=== PATIENT | male | born 1975 | race Caucasian/White ===

== ENCOUNTER → 2017-02-05 | Outpatient (CLI) | payer BC ==
[~2017-02-05] MED LIST: CARI350T14 PO; FENT1PAT15 TP; FEXO1TAB31 PO; HYDR-2766 PO; IOHEXOL 180 MG/ML 10 ML VIAL. ONE; MONT10TA9 PO; MULT1CAP15 PO; NABU500T PO; methylPREDNISolone ACETATE 40 MG/ML VIAL. ONE; methylPREDNISolone ACETATE 80 MG/ML VIAL. ONE
== END | disposition home or self-care (01) ==
LOC: PNCL 07:26
PROVIDERS: ATTEND Anesthesiology
DX: M51.36 Other intervertebral disc degeneration, lumbar region (principal)
CPT/HCPCS: 62323; J1030; J1040

== ENCOUNTER → 2017-02-09 | Outpatient (CLI) | payer BC ==
[~2017-02-09] MED LIST changes: +BUPIVACAINE MPF 0.25% 10 ML VIAL. ONE; -IOHEXOL 180 MG/ML 10 ML VIAL. ONE; -methylPREDNISolone ACETATE 80 MG/ML VIAL. ONE
== END | disposition home or self-care (01) ==
LOC: PNCL 07:18
PROVIDERS: ATTEND Anesthesiology
DX: M77.9 Enthesopathy, unspecified (principal)
CPT/HCPCS: 20600; J1030; J3490

== ENCOUNTER → 2017-02-23 | Outpatient (CLI) | payer BC ==
[~2017-02-23] MED LIST changes: -BUPIVACAINE MPF 0.25% 10 ML VIAL. ONE; +IOHEXOL 180 MG/ML 10 ML VIAL. ONE; +methylPREDNISolone ACETATE 80 MG/ML VIAL. ONE
== END | disposition home or self-care (01) ==
LOC: PNCL 14:05
PROVIDERS: ATTEND Anesthesiology
DX: M51.16 Intervertebral disc disorders with radiculopathy, lumbar region (principal); M96.1 Postlaminectomy syndrome, not elsewhere classified
CPT/HCPCS: 62323; J1030; J1040

== ENCOUNTER 2017-04-16 12:15 | Emergency (ER) | payer BC ==
[~2017-04-16] VITALS: Ht 188 cm; Wt 103.0 kg
[~2017-04-16 12:15] MED LIST changes: -IOHEXOL 180 MG/ML 10 ML VIAL. ONE; -methylPREDNISolone ACETATE 40 MG/ML VIAL. ONE; -methylPREDNISolone ACETATE 80 MG/ML VIAL. ONE
[2017-04-16 12:44] VITALS: BP 124/75
--- NOTE | 2017-04-16 14:26 | RAD ---
Right forearm, 2 views, 04/16/2017: History: Pain No fracture or bony abnormality is detected. IMPRESSION: No significant abnormality is identified. Right elbow, 3 views, 04/16/2017: No fracture or dislocation is identified. No significant arthritic changes are seen. There is no evidence of a significant joint effusion. IMPRESSION: No right elbow abnormality is detected.
--- NOTE | 2017-04-16 14:32 | PHYS DOC ---
Past Medical History Past Medical History: Other Additional Past Medical Histor: chronic back pain Past Surgical History: Other Additional Past Surgical Histo: back Alcohol Use: Occasionally Drug Use: None Adult General Chief Complaint Chief Complaint: [facility] EXT[facility] HPI Patient is a 41 year old male presents to the emergency room stating he's been having right elbow, right forearm pain and discomfort since December. He states that he's been getting injections at Dr. Jo office. Patient states that he went fishing over the weekend he has had increased pain and discomfort in the area. He denies any numbness or tingling into the hands. He denies using any type medications to help with pain and discomfort. He denies any injury or any trauma. Review of Systems Review of Systems Constitutional: Denies fever or chills [] Eyes: Denies change in visual acuity, redness, or eye pain [] HENT: Denies nasal congestion or sore throat [] Respiratory: Denies cough or shortness of breath [] Cardiovascular: No additional information not addressed in HPI [] GI: Denies abdominal pain, nausea, vomiting, bloody stools or diarrhea [] : Denies dysuria or hematuria [] Musculoskeletal: Denies back pain. Complaint of right elbow right forearm pain Integument: Denies rash or skin lesions [] Neurologic: Denies headache, focal weakness or sensory changes [] Endocrine: Denies polyuria or polydipsia [] Allergies Allergies Allergies Coded Allergies Type Severity Reaction Last Updated Verified No Known Drug Allergies 03/11/16 No Physical Exam Physical Exam Constitutional: Well developed, well nourished, no acute distress, non-toxic appearance. [] HENT: Normocephalic, atraumatic, bilateral external ears normal, oropharynx moist, no oral exudates, nose normal. [] Eyes: PERRLA, EOMI, conjunctiva normal, no discharge. [] Neck: Normal range of motion, no tenderness, supple, no stridor. [] Cardiovascular:Heart rate regular rhythm Lungs & Thorax: No respiratory distress noted Skin: Warm, dry, no erythema, no rash. [] Back: No tenderness Extremities: Right elbow, right forearm tenderness, no cyanosis, no clubbing, ROM intact, no edema. Peripheral pulses 2+ cap refill brisk less than 2 seconds. Equal jewelry racker noted bilaterally. Neurologic: Alert and oriented X 3, normal motor function, normal sensory function, no focal deficits noted. [] Psychologic: Affect normal, judgement normal, mood normal. [] Current Patient Data Vital Signs Vital Signs Date Time Temp Pulse Resp B/P (MAP) Pulse Ox O2 Delivery O2 Flow Rate FiO2 04/16/17 12:44 98.9 78 18 124/75 (91) 99 Room Air 98.9 EKG EKG [] Radiology/Procedures Radiology/Procedures [][facility] [address] [place] [address] IMAGING REPORT Signed PATIENT: SARKIS ZARCO ACCOUNT: [id number] : 1975 LOCATION: ER AGE: 41 SEX: M EXAM [id number] STATUS: REG ER ORD. PHYSICIAN: MICHAEL POWELL APRN REASON: pain and discomfot since december PROCEDURE: ELBOW RIGHT 3V; FOREARM RIGHT Right forearm, 2 views, 04/16/2017: History: Pain No fracture or bony abnormality is detected. IMPRESSION: No significant abnormality is identified. Right elbow, 3 views, 04/16/2017: No fracture or dislocation is identified. No significant arthritic changes are seen. There is no evidence of a significant joint effusion. IMPRESSION: No right elbow abnormality is detected. DICTATED and SIGNED BY: HUAN SORIANO MD DATE: 04/16/17 1422 CC: MICHAEL POWELL APRN; KAVITA JO MD ~ Course & Med Decision Making Course & Med Decision Making Pertinent Labs and Imaging studies reviewed. (See chart for details) X-rays were negative for any bony abnormalities. Patient will be placed in Siva wrap and a sling. Recommended Tylenol or ibuprofen for pain and discomfort. Recommended ice packs on 20 minutes off 20 minutes several times a day. Wear the Siva wrap for the next 5 days. Use the sling for comfort. He may wear this for the next 5-7 days. Follow-up with orthopedic within the next week. Patient was provided with signs and symptoms to return back to emergency department. Patient agrees with discharge instructions, treatment regimens and follow-up recommendations. All questions and concerns been answered at patient's bedside. Dragon Disclaimer Dragon Disclaimer This electronic medical record was generated, in whole or in part, using a voice recognition dictation system. Departure Departure Impression: Primary Impression: Bursitis of right elbow Disposition: 01 HOME, SELF-CARE Condition: STABLE Referrals: KAVITA JO MD (PCP) Patient Instructions: Tennis Elbow, [id number] Additional Instructions: Your x-rays were negative for any bony abnormalities. Tylenol or ibuprofen for pain and discomfort. Ice packs on 20 minutes off 20 minutes several times a day. Wear the Siva wrap for the next 5-7 days. Use the sling for the next 5-7 days. Take your arm out of the sling 4-5 times a day and do active range of motion with the elbow. Follow-up to primary care physician/orthopedic in the next week. Return back to emergency prior signs symptoms of become worse. Problem Qualifiers Primary Impression: Bursitis of right elbow Elbow bursitis location: unspecified Qualified Codes: M70.31 - Other bursitis of elbow, right elbow MICHAEL POWELL APRN Apr 16, 2017 14:32
== END 2017-04-16 14:37 | disposition home or self-care (01) ==
LOC: ER 12:15
DX: M70.31 Other bursitis of elbow, right elbow (principal); G89.29 Other chronic pain; M79.631 Pain in right forearm
CPT/HCPCS: 73080; 73090; 99284

== ENCOUNTER → 2017-08-21 | Outpatient (CLI) | payer BC | END | disposition home or self-care (01) | LOC: MRI 14:55 | DX: M48.02 Spinal stenosis, cervical region (principal); M50.222 Other cervical disc displacement at C5-C6 level | CPT/HCPCS: 72141 ==

== ENCOUNTER → 2017-09-10 | Outpatient (CLI) | payer BC ==
[~2017-09-10] MED LIST changes: -CARI350T14 PO; -FENT1PAT15 TP; -FEXO1TAB31 PO; -HYDR-2766 PO; +IOHEXOL 180 MG/ML 10 ML VIAL.; -MONT10TA9 PO; -MULT1CAP15 PO; -NABU500T PO; +methylPREDNISolone ACETATE 40 MG/ML VIAL.; +methylPREDNISolone ACETATE 80 MG/ML VIAL.
== END | disposition home or self-care (01) ==
LOC: PNCL 09:25
DX: M50.123 Cervical disc disorder at C6-C7 level with radiculopathy (principal); M51.16 Intervertebral disc disorders with radiculopathy, lumbar region; M96.1 Postlaminectomy syndrome, not elsewhere classified
CPT/HCPCS: 62321; J1030; J1040; Q9965

== ENCOUNTER → 2017-09-24 | Outpatient (CLI) | payer BC ==
[~2017-09-24] MED LIST changes: +BUPIVACAINE MPF 0.25% 10 ML VIAL.
== END | disposition home or self-care (01) ==
LOC: PNCL 07:31
DX: M50.123 Cervical disc disorder at C6-C7 level with radiculopathy (principal); M51.16 Intervertebral disc disorders with radiculopathy, lumbar region; M96.1 Postlaminectomy syndrome, not elsewhere classified
CPT/HCPCS: 62321; J1030; J1040; J3490; Q9965

== ENCOUNTER → 2017-09-29 | Outpatient (CLI) | payer BC ==
[2017-09-29] MEDS: IOHEXOL 300 MG/ML 10ML VIAL. IJ ×2 (09:15)
[2017-09-29] MEDS: LIDOCAINE WITH 8.4% SOD BICARB 3 ML DISP.SYRIN. INJ ×2 (09:34)
== END | disposition home or self-care (01) ==
LOC: RAD 08:09
DX: M54.12 Radiculopathy, cervical region (principal); M50.323 Other cervical disc degeneration at C6-C7 level; M50.222 Other cervical disc displacement at C5-C6 level; J43.9 Emphysema, unspecified
CPT/HCPCS: 72126; 72240; Q9967

== ENCOUNTER → 2017-10-20 | Outpatient (CLI) | payer BC ==
[~2017-10-20] MED LIST changes: -BUPIVACAINE MPF 0.25% 10 ML VIAL.
== END ==
LOC: PNCL 13:58
DX: M51.16 Intervertebral disc disorders with radiculopathy, lumbar region (principal); M96.1 Postlaminectomy syndrome, not elsewhere classified; M50.10 Cervical disc disorder with radiculopathy, unspecified cervical region; M77.9 Enthesopathy, unspecified
CPT/HCPCS: 62323; J1030; J1040; Q9965

== ENCOUNTER → 2017-12-04 | Outpatient (CLI) | payer BC | END | disposition home or self-care (01) | LOC: PNCL 08:25 | DX: M51.16 Intervertebral disc disorders with radiculopathy, lumbar region (principal); M50.10 Cervical disc disorder with radiculopathy, unspecified cervical region; M77.8 Other enthesopathies, not elsewhere classified | CPT/HCPCS: 99212 ==

== ENCOUNTER → 2017-12-24 | Outpatient (CLI) | payer BC | END | disposition home or self-care (01) | LOC: KCIC MRI 15:41 | DX: M51.36 Other intervertebral disc degeneration, lumbar region (principal) | CPT/HCPCS: 72148 ==

== ENCOUNTER → 2017-12-31 | Outpatient (CLI) | payer BC | LOC: PNCL 13:36 | DX: M51.16 Intervertebral disc disorders with radiculopathy, lumbar region (principal); M96.1 Postlaminectomy syndrome, not elsewhere classified; M50.10 Cervical disc disorder with radiculopathy, unspecified cervical region | CPT/HCPCS: 62323; J1030; J1040; Q9965 ==

== ENCOUNTER → 2018-02-08 | Outpatient (CLI) | payer BC | END | disposition home or self-care (01) | LOC: PNCL 08:41 | DX: M51.16 Intervertebral disc disorders with radiculopathy, lumbar region (principal); M50.10 Cervical disc disorder with radiculopathy, unspecified cervical region; J43.9 Emphysema, unspecified | CPT/HCPCS: 99212 ==

== ENCOUNTER → 2018-03-15 | Outpatient (CLI) | payer BC ==
[~2018-03-15] MED LIST changes: -IOHEXOL 180 MG/ML 10 ML VIAL.; +LIDOCAINE 2% PF Vial for OR 5 ML VIAL.; -methylPREDNISolone ACETATE 40 MG/ML VIAL.; -methylPREDNISolone ACETATE 80 MG/ML VIAL.
== END | disposition home or self-care (01) ==
LOC: PNCL 13:00
DX: M51.16 Intervertebral disc disorders with radiculopathy, lumbar region (principal); M96.1 Postlaminectomy syndrome, not elsewhere classified; M50.10 Cervical disc disorder with radiculopathy, unspecified cervical region; J43.9 Emphysema, unspecified; Z79.899 Other long term (current) drug therapy
CPT/HCPCS: 63650; C1778; J2001

== ENCOUNTER → 2018-03-18 | Outpatient (CLI) | payer BC | END | disposition home or self-care (01) | LOC: PNCL 10:13 | DX: M51.16 Intervertebral disc disorders with radiculopathy, lumbar region (principal); J43.9 Emphysema, unspecified; Z87.891 Personal history of nicotine dependence | CPT/HCPCS: 99212 ==

== ENCOUNTER → 2021-01-14 | Outpatient (CLI) | payer BC, MEDICAID ==
[2017-09-29 12:20] VITALS: BP 112/75
[~2021-01-14] MED LIST changes: +CARI350T14 PO; +FENT1PAT15 TP; +FEXO1TAB31 PO; +GABA300C18 PO; +HYDR-2769 PO; -LIDOCAINE 2% PF Vial for OR 5 ML VIAL.; +MONT10TA49 PO; +MULT1CAP15 PO; +NABU500T11 PO; +ROPI0.5T PO
[2021-01-14 11:19] LABS: ALBUMIN 4.2 g/dL (3.4-5.0); ALBUMIN/GLOBULIN RATIO 1.4 (1.0-1.7); DIRECT BILIRUBIN 0.1 mg/dL (0.0-0.2); GFR 80.1; POTASSIUM 4.5 mmol/L (3.5-5.1); TOTAL BILIRUBIN 0.5 mg/dL (0.2-1.0); TOTAL PROTEIN 7.2 g/dL (6.4-8.2)
[2021-01-14 11:21] LABS: BASO % 1 % (0-3); EOS # 0.2 x10^3/uL (0.0-0.7); EOS % 2 % (0-3); HEMATOCRIT 42.3 % (39.0-53.0); HEMOGLOBIN 14.7 g/dL (13.0-17.5); LYMPH # 3.6 x10^3/uL (1.0-4.8); LYMPH % 40 % (24-48); MEAN CORPUSCULAR HEMOGLOBIN 31 pg (25-35); MEAN CORPUSCULAR HGB CONC 35 g/dL (31-37); MEAN CORPUSCULAR VOLUME 88 fL (79-100); MONO # 0.6 x10^3/uL (0.0-1.1); MONO % 7 % (0-9); NEUT # 4.7 x10^3/uL (1.8-7.7); NEUT % 51 % (31-73); PLATELET COUNT 229 x10^3/uL (140-400); RED BLOOD COUNT 4.81 x10^6/uL (4.30-5.70); RED CELL DISTRIBUTION WIDTH 13.7 % (11.5-14.5); WHITE BLOOD COUNT 9.1 x10^3/uL (4.0-11.0)
== END ==
LOC: LAB 10:33
DX: L40.0 Psoriasis vulgaris (principal)
CPT/HCPCS: 80053; 80076; 85025; 86481; 86703; 86705; 86709; 86803; 87340

== ENCOUNTER → 2021-01-17 | Outpatient (CLI) | payer MEDICAID ==
[2017-09-29 12:20] VITALS: BP 112/75
--- NOTE | 2021-01-17 15:46 | RAD ---
Examination: MRI of the left knee without contrast HISTORY: History of left knee pain COMPARISON: None available Technique: Multiplanar, multisequence MR imaging of the left knee was performed without contrast. FINDINGS: The reconstructed anterior cruciate ligament appears intact. The posterior cruciate ligament appears intact. There is horizontal increased signal identified in the posterior horn of the medial meniscus extendin g to the posterior root likely horizontal degenerative tear with cystic structure extending from the posterior root of the medial meniscus measuring 1 cm likely meniscal cyst. The lateral meniscus appea rs intact. The medial collateral ligament appears intact. Mild increased signal identified in the chirag p to the medial collateral ligament likely scarring changes likely from prior surgical changes.. Late ral collateral ligamentous complex including the fibular collateral ligament, biceps femoris and popl iteus tendon appears intact. The medial, lateral retinaculum appears intact. Small knee joint effusion. The extensor mechanism is intact. Moderate joint space loss identified in medial, lateral, patellofemoral compartments. IMPRESSION: 1. Horizontal increased signal identified in the posterior horn of the medial meniscus extending to the posterior root likely horizontal degenerative tear with cystic structure extending from the poste rior root of the medial meniscus measuring 1 cm likely meniscal cyst. 2. The reconstructed anterior cruciate ligament appears intact. 3. Small knee joint effusion. 4. Moderate tricompartmental degenerative changes. Electronically signed by: Edilson Lozoya MD (01/17/2021 3:44 PM) [id number]
--- NOTE | 2021-01-17 16:01 | RAD ---
Examination: MRI of the right knee without contrast HISTORY: History of right knee pain COMPARISON: None available TECHNIQUE: Multiplanar, multisequence MR imaging of the right knee without contrast FINDINGS: The anterior cruciate ligament, posterior cruciate ligament appears intact. There is blunting of the undersurface of the posterior horn of the medial meniscus could be tear of t he posterior horn of the medial meniscus with multiloculated cystic structure arising from the sack department supervisor ior horn of the medial meniscus measuring 1.5 cm probably meniscal cyst. The medial, lateral retinacu lum appears intact. Small subchondral cystic changes identified in the posterior aspect of the medial femoral condyle lik andrew degenerative changes. Mild superficial fraying of cartilage identified in the medial, lateral, pa tellofemoral compartments. Small knee joint effusion Trace popliteal cyst. IMPRESSION: 1. Blunting of the undersurface of the posterior horn of the medial meniscus likely tear of the post erior horn of the medial meniscus with multiloculated cystic structure arising from the posterior hor n of the medial meniscus measuring 1.5 cm probably meniscal cyst. 2. Small knee joint effusion with trace popliteal cyst. 3. Grade I chondromalacia medial, lateral, patellofemoral compartments. Electronically signed by: Edilson Lozoya MD (01/17/2021 3:59 PM) [id number]
== END ==
LOC: MRI 13:27
PROVIDERS: ATTEND Nurse Practitioner Gerontology
DX: M17.12 Unilateral primary osteoarthritis, left knee (principal); M25.461 Effusion, right knee; M71.21 Synovial cyst of popliteal space [Baker], right knee
CPT/HCPCS: 73721

== ENCOUNTER 2021-02-19 07:51 | Day surgery (SDC) | payer MEDICAID ==
[~2021-02-19] VITALS: Ht 188 cm; Wt 83.1 kg
[~2021-02-19 07:51] MED LIST changes: +BUSP5TAB PO; +DOCU50CA9 PO; +DULO30CA2 PO; +HYDR-2761 PO; +HYDROmorphone 2 MG/ML VIAL IVP PRN; +IV RINGERS,LACTATED 1000ML 1,000 ML IV SCH; +MAGN500C10 PO; +PROCHLORPERAZINE 10 MG/2 ML VIAL. IVP PRN; +SERT100T PO; +TIZA4TAB2 PO; +TURM500C4 PO; +fentaNYL PF VIAL 100 MCG/2 ML VIAL IVP PRN
[2021-02-19] MEDS ORDERED: OMEP20TA8 PO (08:20)
[2021-02-19 08:31] VITALS: BP 112/75
[2021-02-19] MEDS ORDERED: BUPIVACAINE-EPI 0.5% 30 ML VIAL KIT. ONE (08:40)
[2021-02-19] MEDS ORDERED: PROPOFOL 10 MG/ML (20ML) VIAL. IV ONE (09:05)
[2021-02-19] MEDS ORDERED: ONDANSETRON PF 4 MG/2 ML VIAL. ONE (09:05)
[2021-02-19] MEDS ORDERED: fentaNYL PF VIAL 100 MCG/2 ML VIAL ONE (09:05)
[2021-02-19] MEDS ORDERED: MIDAZOLAM HCL/PF 2 MG/2 ML VIAL. ONE (09:05)
[2021-02-19] MEDS ORDERED: LIDOCAINE 2% PF 5 ML VIAL. ONE (09:05)
[2021-02-19] MEDS ORDERED: DEXAMETHASONE SOD PHOS 4 MG/ML VIAL ONE (09:05)
[2021-02-19] MEDS ORDERED: OXYC5CAP PO (09:54)
[2021-02-19] MEDS ORDERED: SEVOFLURANE 31 TO 60 MINUTES. IH ONE (10:17)
[2021-02-19] MEDS ORDERED: MORPHINE SULFATE 2 MG/ML INJ. ONE (10:31)
[2021-02-19] MEDS: MORPHINE SULFATE 2 MG/ML INJ. IVP PRN ×2 (10:38→10:56)
--- NOTE | 2021-02-19 10:42 | DISCH ---
DISCHARGE INSTRUCTIONS Condition on Discharge Condition on Discharge: Stable Activity After Discharge Activity Instructions for Disc: Progressive ambulation Weight Bearing Status after Di: As tolerated Diet after Discharge Diet after Discharge: Regular Wound Incision Care Wound/Incision Care: Ice to area for comfort, Keep wound elevated, Change dressing (Remove dressing in 2 days may then shower no soaking until sutures removed) Contacting the after DC Call your doctor for: Concerns you may have Follow-Up Follow up with: Dr. Garza or Ricardo 7 to 10 days RIKI GARZA MD Feb 19, 2021 10:42
[2021-02-19] MEDS ORDERED: HYDROcodone/APAP 5/325MG 1 TAB TABLET PO ONE ×2 (11:00)
[2021-02-19 11:15] VITALS: BP 110/76
--- NOTE | 2021-02-19 23:17 | PDOC4 ---
Operative Note Operative Note Date of surgery: 02/19/2021 Preoperative diagnosis: Medial meniscus tear left knee Postoperative diagnosis: Same with posterior horn medial meniscus tear and free edge fraying lateral meniscus and chondral flap tear medial femoral condyle Operative procedure: Left knee arthroscopy partial medial and lateral meniscectomies chondroplasty medial femoral condyle Surgeon: Greg Compounding Technician: Adrian willard Anesthesia: General Estimated blood loss: 5 cc Complications: None Operative indications: Patient has significant pain and swelling with any pivoting or twisting especially as well as to a lesser extent with walking and increased activity. MRI shows documented tear posterior horn the medial meniscus as well as some chondromalacia I went over with him that we can potentially undergo arthroscopic surgery to treat the mechanical aspects of the meniscus tear but I cannot undo any degenerative change and that would have to be treated in an ongoing fashion with symptomatic treatment. In addition there is possibility of continued pain infection nerve or blood vessel damage medical or other anesthetic complications among others all his questions were answered and he wishes to proceed with surgical evaluation and treatment Operative text: Patient was identified procedure verified patient placed in the supine position on the operating table. After adequate amounts of general anesthesia were administered the left lower extremity was prepped and draped in standard sterile fashion with a thigh tourniquet. After timeout was performed patient procedure identified and verified the left lower extremity was exsanguinated by Esmarch bandage tourniquet inflated to 300 mmHg a lateral portal was established medial portal established using spinal needle localization and the knee joint was systematically examined. He was found to have a chondral defect in the trochlea not requiring debridement minimal chondromalacia of the patella no loose bodies noted in the gutters or suprapatellar pouch. Medial meniscus posterior horn was found to have a displaceable tear and was trimmed back to stable tissue with the arthroscopic punch and shaver. Likewise had a displaceable chondral flap tear of the medial femoral condyle which was trimmed back to stable tissue and was not full- thickness in nature. ACL was probed and found to be intact lateral meniscus showed free edge fraying which was trimmed back to stable tissue with the arthroscopic punch and shaver any cartilage fragments were removed and the joint was drained of arthroscopic fluid portals closed with nylon suture fat pad and portal areas were injected with half percent plain Marcaine sterile dressings were applied patient was returned to recovery room stable condition having tolerated procedure well. Adrian Michael inventory control assistant assisted in patient positioning prepping draping positioning closure and dressings RIKI ARRIETA MD Feb 19, 2021 23:17
== END 2021-02-19 12:12 | disposition home or self-care (01) ==
LOC: SURG 07:51
PROVIDERS: ATTEND Orthopaedic Surgery
DX: S83.242A Other tear of medial meniscus, current injury, left knee, initial encounter (principal); S83.282A Other tear of lateral meniscus, current injury, left knee, initial encounter; K21.9 Gastro-esophageal reflux disease without esophagitis; M19.90 Unspecified osteoarthritis, unspecified site; F41.9 Anxiety disorder, unspecified; Z72.89 Other problems related to lifestyle; Z87.891 Personal history of nicotine dependence; Z79.899 Other long term (current) drug therapy; Z98.890 Other specified postprocedural states; Z20.822 Contact with and (suspected) exposure to COVID-19; X58.XXXA Exposure to other specified factors, initial encounter; Y93.89 Activity, other specified; Y92.89 Other specified places as the place of occurrence of the external cause; Y99.8 Other external cause status
CPT/HCPCS: 29880; 87426; A4930; J0690; J1100; J2250; J2270; J2405; J2704; J3010

== ENCOUNTER → 2021-04-24 | Outpatient (CLI) | payer MEDICAID ==
[~2021-04-24] MED LIST changes: -HYDROmorphone 2 MG/ML VIAL IVP PRN; +IOHEXOL 300 MG/ML 100ML VIAL. IV ONE; -IV RINGERS,LACTATED 1000ML 1,000 ML IV SCH; +OMEP20TA8 PO; +OXYC5CAP PO; -PROCHLORPERAZINE 10 MG/2 ML VIAL. IVP PRN; -fentaNYL PF VIAL 100 MCG/2 ML VIAL IVP PRN
--- NOTE | 2021-04-24 16:48 | KCIC ---
EXAM: Cervical, thoracic and lumbar spine CT without contrast. HISTORY: Chronic back pain. Radiculopathy. Spinal cord stimulator. TECHNIQUE: Computed tomographic images of the cervical, thoracic and lumbar were obtained following t he administration of intravenous contrast. Multiplanar reformatting was performed. *One or more of the following individualized dose reduction techniques were utilized for this examina tion: 1. Automated exposure control. 2. Adjustment of the mA and/or kV according to patient size. 3. Use of iterative reconstruction technique. COMPARISON: MRI dated 12/24/2017, CT dated 09/29/2017. FINDINGS: Cervical spine: There is straightening of cervical lordosis. There is 2 mm retrolisthesis of C5 on C6 . There is degenerative endplate remodeling with anterior predominant spurring and disc space narrowi ng predominantly at C6-C7, and to a lesser extent, C5-C6. There are endplate Schmorl's nodes at C6-C7 . There is multilevel facet arthropathy. There is no fracture or suspicious osseous lesion. There is no suspicious enhancing lesion. The skull base and posterior fossa are unremarkable. The airway is mi dline and widely patent. At C2-C3, there is no stenosis. At C3-C4, there is a suspected broad-based right lateral recess to foraminal disc protrusion superimp osed on a disc bulge and endplate remodeling. There is uncovertebral arthropathy. There is moderate r ight and mild left foraminal stenosis. At C4-C5, there is a posterior central disc protrusion superimposed on a disc bulge and endplate krishna deling. There is no stenosis. At C5-C6, there is a left paracentral disc protrusion superimposed on a disc bulge and endplate remod eling. There is no stenosis. At C6-C7, there is a disc bulge and endplate osteophytosis. There is mild bilateral facet arthropathy . There is bilateral uncovertebral arthropathy. There is moderate right and severe left foraminal don nosis. There is mild central canal stenosis. Thoracic spine: There is minimal thoracic dextrocurvature centered at T6. There is multilevel endplat e remodeling and anterior spurring. There are few small mid and lower thoracic endplate Schmorl's nod es. There is no suspicious osseous lesion. There is no fracture. There are dorsal column stimulator l [place] extending into the dorsal aspect of the spinal canal at T12-L1 and extending cephalad to termina te at the mid aspect of T10. At T5-C6, there is a posterior central disc protrusion. There is no stenosis. At T6-T7, there is a broad-based left paracentral to lateral recess disc protrusion. There is no sten osis. At T7-T8, there is a posterior central to right paracentral disc protrusion. There is no stenosis. At T8-T9, there is a left paracentral disc protrusion. There is no stenosis. There is biapical predominant emphysema with subpleural bleb formation. There is posterior dependent atelectasis. No pleural effusion or infiltrate is seen. Lumbar spine: There is 2 mm retrolisthesis of L3 on L4 and L4 and L5 and L5 and S1. There is degenera tive endplate remodeling with disc space narrowing, osteophytosis and Schmorl's node formation at L5- S1. There is vacuum phenomenon within the disc space at this level. There are few additional Schmorl' s nodes, predominantly within the inferior endplate of L4. There is no fracture or suspicious osseous lesion. There is a spinal stimulator generator within the left flank subcutaneous fat. At L1-L2, there is no stenosis. At L2-L3, there is a mild disc bulge and endplate remodeling. There is mild left facet arthropathy. T here is minimal central canal stenosis. At L3-L4, there is a moderate disc bulge and endplate remodeling. There is slight retrolisthesis. The re is mild central canal stenosis. At L4-L5, there is a moderate disc bulge and left posterior lateral predominant endplate osteophytosi s. There is mild right greater than left facet arthropathy. There are right hemilaminotomy changes. T here is mild left greater than right foraminal stenosis. There is mild central canal stenosis. At L5-S1, there is a posterior central disc protrusion superimposed on a disc bulge and endplate oste ophytosis. There is mild retrolisthesis. There is mild bilateral facet arthropathy. There is mild rig ht and moderate left foraminal stenosis. IMPRESSION: 1. Multilevel degenerative change involving the cervical, thoracic and lumbar spine, described in det ail above. This is associated with stenosis at multiple levels. The right foraminal stenosis is most significant at C3-C4 and C6-C7 and a left foraminal stenosis is most significant at C6-C7 and L5-S1. 2. Mild scoliosis and mild multilevel listhesis, described above. 3. Dorsal column stimulator leads terminating at T10. 4. No acute finding. Electronically signed by: Jill Lyons MD (04/24/2021 4:45 PM) [id number]
== END ==
LOC: KCIC CT 12:38
PROVIDERS: ATTEND Family Medicine
DX: M47.22 Other spondylosis with radiculopathy, cervical region (principal); M50.13 Cervical disc disorder with radiculopathy, cervicothoracic region; M47.817 Spondylosis without myelopathy or radiculopathy, lumbosacral region; M51.27 Other intervertebral disc displacement, lumbosacral region; M48.07 Spinal stenosis, lumbosacral region; M43.12 Spondylolisthesis, cervical region; M48.02 Spinal stenosis, cervical region; M41.86 Other forms of scoliosis, lumbar region; M51.46 Schmorl's nodes, lumbar region; J43.9 Emphysema, unspecified
CPT/HCPCS: 72126; 72129; 72132; Q9967

== ENCOUNTER → 2021-05-02 | Outpatient (CLI) | payer MEDICAID ==
[~2021-05-02] MED LIST changes: +IBUP-1060 PO; +IOHEXOL 180 MG/ML 10 ML VIAL. ONE; -IOHEXOL 300 MG/ML 100ML VIAL. IV ONE; +SECU150S2 SQ; +methylPREDNISolone ACETATE 80 MG/ML VIAL. ONE
--- NOTE | 2021-05-02 13:15 | PDOC ---
Progress Note - Pain Clinic Date of Service: DOS: DATE: 05/02/21 TIME: 12:56 Diagnosis: Dx: Cervical radiculopathy with cervical degenerative disease and cervical spinal stenosis Lumbar radiculopathy with lumbar degenerative disc disease and lumbar postlaminectomy syndrome with spinal cord stimulator History or Present Illness: HPI: 45-year-old male returns for follow-up status post medical stimulator placement in 2018, patient for several months has had increasing pain low back and bilateral lower extremities also significant pain in the neck and upper back as well as bilateral upper extremities. We have been in contact with the spinal cord stimulator health and safety representative for [facility], and had patient coordinate with him to be present today as well. Patient has recent MRI scan of the cervical and thoracic spines which we discussed with he and his spouse today showing some significant disc base narrowing see 566 7 Schmorl's nodes at C6-7 also paracentral disc protrusions at the 3445 and 5 6 as well as 6 7 with severe right and left foraminal stenosis at C6-7 level. Patient significant pain in the base the neck and shoulder as well as the upper extremities which is unusual for him is usually concerned with his back pain however this is much more painful in the neck and shoulders and upper extremities as well as the low back. Patient reports he has been in excruciating pain in the low back and legs for several months now and the stimulator has been reprogrammed without significant reduction in the pain in the back and legs as well. Patient reports no bowel or bladder incontinence and no motor loss but significant fatigability. Physical Exam: VS: Blood pressure is 126/91 pulse 86 respirations 16 temperature 98.2 F height is 6 feet 2 inches weight is 219 pounds. PE: PHYSICAL EXAMINATION: GENERAL: The patient is awake, alert, oriented, appropriate, very pleasant in demeanor, patient [place] by his spouse HEENT: Shows normocephalic, atraumatic. Extraocular movements are intact and symmetrical. Oral cavity: Mucous membranes moist and pink. Dentition is intact. NECK: Shows anterior throat supple without palpable lymphadenopathy noted. Swallow reflex symmetrical. CHEST: Shows normal on inspection. Breath sounds are clear bilaterally, no rales rhonchi wheezes auscultated. HEART: Shows S1, S2 clear. No murmurs auscultated. ABDOMEN: Soft, nontender, nondistended. No palpable organomegaly is noted. BACK: Shows spine grossly in the midline. Normal-appearing cervical lordotic curvature. Cervical spine shows well-healed surgical scarring in the midline paraspinous muscles show symmetrical inspection, on palpation some moderate tenderness diffusely bilaterally diffusely without significant radiation. There is slightly increased thoracic kyphosis, some minor flattening of the lumbar lordotic curvature. Well-healed surgical scarring is noted in the lumbar spine with easily palpable spinal cord stimulator generator. Lumbar paraspinous muscles show symmetrical on inspection, on palpation shows some moderate tenderness diffusely throughout the upper, middle and lower distribution of the paraspinous muscles without specific trigger points, without radiation of pain. The patient has good rotational motion of the lumbar spine, both laterally as well as extension and flexion. EXTREMITIES: Lower extremities show deep tendon reflexes 1+ in the patellar and tendo calcaneus tendons. Motor exam is 4 on a scale of 5 with right dorsiflexion, extension, quadriceps and hamstring flexion and 4/5 on the left. Peripheral pulses are 1 posterior tibial. No peripheral edema is noted bilaterally. Lower extremities are warm and dry to touch, equal in color and appearance. Upper extremity show deep tendon reflexes 2+ in the bicep triceps tendons, motor exam is strong with president celebrity acquistion strength rated 5 out of 5 as is bicep and tricep flexion. SKIN: Shows warm and dry, good turgor. No edema. No sores, rashes or bruising throughout. Procedure: Procedure: Options were discussed with the patient. Patient chart was reviewed as his current medication regimen updated current review of systems updated today as well. We checked lead position of the spinal cord stimulator leads today and discovered that the leads had retracted inferiorly to vertebral levels and now rest at the inferior aspect of the lower endplate of T10, where originally were placed at the superior endplate of T8. We will make arrangements for neurosurgical evaluation for a paddle lead to be placed going forward. Also, with significant radicular pain in the upper extremities we will proceed with a cervical epidural steroid injection today with fluoroscopic guidance. Risks were discussed including but not limited to: Bleeding, infection, possibility of epidural hematoma and subsequent neurological compromise, dural puncture, headaches, spinal cord and/or nerve damage, side effects of steroid medication, and poor results regarding pain control. Patient understands and wished to proceed. Patient will return to the clinic in approximately 2 weeks as scheduled. Patient was counseled as to return appointment, activity level, and side effect to be aware of. Medication Injected: Med Injected: Procedure cervical epidural steroid injection at the C6-7 level, using local anesthetic under sterile prep and drape using C-arm fluoroscopic guidance under local anesthesia medications injected ;120 mg Depo-Medrol +5 mL normal saline and 2 mL contrast; condition at discharge is stable patient tolerated procedure well. and had no complications Condition at Discharge: Condition at Discharge: Condition at discharge stable, patient already the procedure well complications DORCAS MCRAE MD May 02, 2021 13:15
--- NOTE | 2021-05-02 13:16 | PDOC4 ---
Procedure Note: ICD 10 Code: ICD 10 Code: M 54.12 M 50.30 M 48.02 Procedure Note: Patient was consented for cervical epidural steroid injection with fluoroscopic guidance. Risks were discussed including but not limited to: Bleeding, infection, possibility of epidural hematoma and subsequent neurological compromise, dural puncture, headaches, spinal cord and/or nerve damage, side effects of steroid medication, and poor results regarding pain control. Patient understands and wished to proceed. Procedure: cervical epidural steroid injection at the C6-7 level, using local anesthetic under sterile prep and drape using C-arm fluoroscopic guidance under local anesthesia medications injected ;120 mg Depo-Medrol +5 mL normal saline and 2 mL contrast; condition at discharge is stable patient tolerated procedure well. and had no complications DORCAS MCRAE MD May 02, 2021 13:16
== END | disposition home or self-care (01) ==
LOC: PNCL 11:13
PROVIDERS: ATTEND Anesthesiology
DX: M50.10 Cervical disc disorder with radiculopathy, unspecified cervical region (principal); M48.02 Spinal stenosis, cervical region; M51.16 Intervertebral disc disorders with radiculopathy, lumbar region; M96.1 Postlaminectomy syndrome, not elsewhere classified; K21.9 Gastro-esophageal reflux disease without esophagitis; M19.90 Unspecified osteoarthritis, unspecified site; F41.9 Anxiety disorder, unspecified; Z79.899 Other long term (current) drug therapy; Z72.89 Other problems related to lifestyle; Z98.890 Other specified postprocedural states
CPT/HCPCS: 62321; G0463; J1040; Q9965

== ENCOUNTER → 2021-05-27 | Outpatient (CLI) | payer MEDICAID ==
[~2021-05-27] MED LIST changes: +HYDR8TAB29 PO; -IOHEXOL 180 MG/ML 10 ML VIAL. ONE; -methylPREDNISolone ACETATE 80 MG/ML VIAL. ONE
--- NOTE | 2021-05-27 11:30 | NUR ---
Patient called states his meds are not controlling his pain. States he seen Dr Hope did not like his bedside manners. Cancelled his appointment for DR Majano. states that would take to long. Informed patient he would have to make an appointment with Dr Majano for his SCS. denies constipation or new medical problems. Call transferred to Dr Devine for medication decisions
--- NOTE | 2021-05-27 11:46 | PDOC ---
Progress Note - Pain Clinic Date of Service: DOS: DATE: 05/27/21 TIME: 11:44 Diagnosis: Dx: Cervical radiculopathy with cervical degenerative disc disease and cervical spinal stenosis Lumbar radiculopathy with lumbar degenerative disc disease and post lumbar laminectomy syndrome History or Present Illness: HPI: Telemedicine visit today with the patient with identity verified with date of as well as full name, total time spent 12 minutes. Patient awaiting spinal cord stimulator revision with neurosurgeon and having s ignificant pain as his stimulator leads had migrated inferiorly discovered on visit May 02, 2021. Patient waiting surgical scheduling has significant pain in the low back and bilateral lower extremities spoke with both he and his spouse today regarding his pain he is taking oxycodone as well as extended release morphine. After significant discussion, we decided upon changing oxycodone to hydromorphone and maintaining the extended release morphine as every 12 hours currently. Patient given instructions well side effects aware with the new medication and will follow up once medication is obtained if it is not efficacious. Medication will be electronically prescribed to patient's pharmacy, [facility]. DORCAS MCRAE MD May 27, 2021 11:46
== END | disposition home or self-care (01) ==
LOC: PNCL 11:18
PROVIDERS: ATTEND Anesthesiology
DX: M50.10 Cervical disc disorder with radiculopathy, unspecified cervical region (principal); M48.02 Spinal stenosis, cervical region; M51.16 Intervertebral disc disorders with radiculopathy, lumbar region; M96.1 Postlaminectomy syndrome, not elsewhere classified; K21.9 Gastro-esophageal reflux disease without esophagitis; M19.90 Unspecified osteoarthritis, unspecified site; F41.9 Anxiety disorder, unspecified; Z79.899 Other long term (current) drug therapy; Z98.890 Other specified postprocedural states; Z72.89 Other problems related to lifestyle
CPT/HCPCS: 99212; G0463

== ENCOUNTER → 2021-05-31 | Outpatient (CLI) | payer MEDICAID ==
[~2021-05-31] MED LIST changes: +IOHEXOL 180 MG/ML 10 ML VIAL. EPID ONE; +LIDOCAINE 1% Multi-Dose 20 ML VIAL. INJ ONE
--- NOTE | 2021-05-31 10:50 | NUR ---
Pt A&O x4. denies any pain, nausea or dizziness. bandaid on back site is clean and dry. d/c instructions reviewed. pt ambulated from unit accompanied by his . BP 119/75, HR 72, SPO2 95%.
--- NOTE | 2021-05-31 11:55 | RAD ---
IR MYELOGRAM [id number] History:Reason: M54.2 M54.16 M54.6 / Spl. Instructions: 1.7 minutes fluoro time/ 12 images/ 15 cc omn ipaque 180 / History: Technique: Patient was informed of the risks of the procedure to include pain, infection, bleeding an d allergic reaction to the contrast. All questions were answered. Patient signed a written consent fo rm for a lumbar myelogram. The patient was placed in a prone oblique position on the flouroscopy table. External site of the low er back was prepped and draped in the usual sterile fashion. Betadine was utilized for cleansing solu tion. 1% lidocaine was utilized for local anesthesia at the anticipated site of puncture L3. A 22-ga uge spinal needle was advanced towards the thecal sac under intermittent fluoroscopic guidance. Appro ximately 15 cc of Isovue 200 were then injected during fluoroscopic visualization. The needles were removed. Hemostasis was obtained and sterile dressing was applied. Fluoroscopic spot images were acquired of the thoracic and lumbar spine. The patient was then transfe rred to the CT department. There were no immediate complications. Fluoroscopy time: 1.7 minutes seconds. 12 images obtained. Findings: No obstruction to CSF flow. Spinal stimulator leads noted. Impression: 1. Successful lumbar puncture for thoracic and lumbar spine myelogram. CT to follow. Electronically signed by: Hayden Wiley DO (05/31/2021 11:53 AM) [id number]
--- NOTE | 2021-05-31 12:15 | RAD ---
CT THORACIC SPINE WITH IV CONTRAST, CT LUMBAR SPINE W History:Reason: back pain / Spl. Instructions: / History: Technique: Noncontrast CT was performed of the thoracic and lumbar spine. Multiplanar reconstructions were performed. Exposure: One or more of the following individualized dose reduction techniques were utilized for thi s examination: 1. Automated exposure control 2. Adjustment of the mA and/or kV according to patient size 3. Use of iterative reconstruction technique. Comparison: April 24, 2021 Findings: Thoracic spine: Normal vertebral body height and alignment. No fracture. Multilevel small Schmorl's nodes. Spinal stimulator with leads at the T10-T11 levels. The leads enter the posterior epidural space at t he T12-L1 level. Mild degenerative disc changes with small posterior disc protrusions most prominent T5-T6, T6-T7, T7- T8 and T8-T9. Mild cord flattening T6-T7, T7-T8, and T8-T9. Dorsal CSF spaces preserved. No significa nt canal narrowing. No significant neuroforaminal narrowing. Mild pulmonary emphysema. Lumbar spine: Postoperative changes right L4-L5 hemilaminectomy. Mild retrolisthesis L3 on L4, unchanged. Normal vertebral body height. No acute fracture. Degenerativ e endplate changes L4-5 and L5-S1. T12-L1: No canal or neuroforaminal narrowing. L1-L2: Small disc bulge. No canal or neuroforaminal narrowing. L2-L3: Broad-based disc bulge. No canal narrowing. Mild subarticular recess narrowing. No neuroforam inal narrowing. L3-L4: Mild retrolisthesis. Broad-based disc bulge. Mild facet arthropathy. No canal narrowing. Mild subarticular recess narrowing. Mild bilateral neuroforaminal narrowing. L4-L5: Broad-based disc bulge. Vacuum disc phenomenon. Mild facet arthropathy. Ligament of flavum th ickening. Minimal canal narrowing. Subarticular recess narrowing. Abutment of descending L5 nerve michelle ts. Mild to moderate bilateral neuroforaminal narrowing. L5-S1: Posterior disc osteophyte complex. No canal narrowing. Mild facet arthropathy. Mild to modera te bilateral neuroforaminal narrowing. Impression: Thoracic spine CT: 1. Mild multilevel thoracic spondylosis. Lumbar spine CT: 1. Multilevel lumbar spondylosis most prominent L4-5 and L5-S1. 2. L4-L5 minimal canal narrowing with subarticular recess narrowing and abutment of descending L5 ne rve roots. Correlate for radiculopathy. 3. Neuroforaminal narrowing most prominent L4-5 and L5-S1. 4. Spinal stimulator leads terminating at the T10 and T11 level. Electronically signed by: Hayden Wiley DO (05/31/2021 12:12 PM) [id number]
== END | disposition home or self-care (01) ==
LOC: RAD 08:59
PROVIDERS: ATTEND Neurological Surgery
DX: M54.2 Cervicalgia (principal); M54.16 Radiculopathy, lumbar region; M54.6 Pain in thoracic spine; M47.814 Spondylosis without myelopathy or radiculopathy, thoracic region; M47.816 Spondylosis without myelopathy or radiculopathy, lumbar region; M48.061 Spinal stenosis, lumbar region without neurogenic claudication; K21.9 Gastro-esophageal reflux disease without esophagitis; M19.90 Unspecified osteoarthritis, unspecified site; F41.9 Anxiety disorder, unspecified; Z79.899 Other long term (current) drug therapy; Z72.89 Other problems related to lifestyle
CPT/HCPCS: 62305; 72129; 72132; J3490; Q9965

== ENCOUNTER → 2021-06-21 | Outpatient (CLI) | payer MEDICAID ==
[~2021-06-21] MED LIST changes: +HYDR4TAB45 PO; -IOHEXOL 180 MG/ML 10 ML VIAL. EPID ONE; +IOHEXOL 180 MG/ML 10 ML VIAL. ONE; -LIDOCAINE 1% Multi-Dose 20 ML VIAL. INJ ONE; +TIZA-75 PO; -TIZA4TAB2 PO; +methylPREDNISolone ACETATE 40 MG/ML VIAL. ONE; +methylPREDNISolone ACETATE 80 MG/ML VIAL. ONE
--- NOTE | 2021-06-21 09:24 | PDOC ---
Progress Note - Pain Clinic Date of Service: DOS: DATE: 06/21/21 TIME: : Diagnosis: Dx: Cervical radiculopathy with cervical degenerative disease and cervical spinal stenosis Lumbar radiculopathy with lumbar degenerative disease and postlaminectomy syndrome with spinal cord stimulator History or Present Illness: HPI: 45-year-old returns for follow-up status post spinal cord stimulator evaluation and also cervical epidural steroid injections most recently seen May 02. Patient reports he did very well after the injection of 75% improvement he is talking to his neurosurgeon next week regarding the stimulator revision. Patient reports the pain the base the neck and shoulders is a chief complaint with pain rating the upper back mid back low back slightly more on the left than the right but present bilaterally the upper extremities deltoids biceps and into the triceps as well as the forearms and hands with numbness and tingling patient works burning stabbing sharp shooting radiating can be unbearable on and off in intensity worse with repetitive motions reaching lifting bending and reaching above his head with his hands and weightbearing with reaching forward patient reports is a 10 on scale 10 is worse in the last week 8-9 on average 6 its least and is a 7 today. Patient reports no bowel or bladder incontinence. Physical Exam: VS: Blood pressure is 124/83 pulse 90 respirations 18 temperature point review Fahrenheit height is 6 foot 2 inches weight is 222 pounds. PE: PHYSICAL EXAMINATION: GENERAL: The patient is awake, alert, oriented, appropriate, very pleasant in demeanor HEENT: Shows normocephalic, atraumatic. Extraocular movements are intact and symmetrical. Oral cavity: Mucous membranes moist and pink. Dentition is intact. NECK: Shows anterior throat supple without palpable lymphadenopathy noted. Swallow reflex symmetrical. CHEST: Shows normal on inspection. Breath sounds are clear bilaterally, distant no rales or rhonchi. HEART: Shows S1, S2 clear. No murmurs auscultated. ABDOMEN: Soft, nontender, nondistended. No palpable organomegaly is noted. BACK: Shows spine grossly in the midline. Normal-appearing cervical lordotic curvature. Cervical paraspinous muscles show symmetrical with inspection with well-healed posterior surgical scar with palpation shows moderate tenderness diffusely in the upper middle lower decrease the paraspinous muscles bilaterally also notes. No trapezius patient shows full rotation motion cervical spine both laterally as well as full extension full forward flexion with some minor pain with extension but not forward flexion. There is slightly increased thoracic kyphosis, some minor flattening of the lumbar lordotic curvature. Lumbar paraspinous muscles show symmetrical on inspection, on palpation shows some moderate tenderness diffusely throughout the upper, middle and lower distribution of the paraspinous muscles, but without specific trigger points, without radiation of pain. The patient has good rotational motion of the lumbar spine, both laterally as well as extension and flexion without significant difficulty. No tenderness over the spinous processes, sacrum or sacroiliac regions. EXTREMITIES: Lower extremities show deep tendon reflexes 1 in the patellar and tendo calcaneus tendons. Motor exam is 4 on a scale of 5 with right dorsiflexion, extension, quadriceps and hamstring flexion and 4/5 on the left. Peripheral pulses are 1+ posterior tibial. No peripheral edema is noted bilaterally. Lower extremities are warm and dry to touch, equal in color and appearance. Upper extremity show deep tendon reflexes 2+ in the bicep triceps tendons, motor exam strong with it operations specialist strength rated 5 out of 5 as is bicep and tricep flexion. Peripheral pulses are 2+ radial. Shoulder shrug is strong and intact without loss of strength on resistance bilaterally. SKIN: Shows warm and dry, good turgor. No edema. No sores, rashes or bruising throughout. Procedure: Procedure: Options were discussed with patient. Patient chart reviews his current medication regimen updated current review of systems updated today as well. We will proceed with a cervical epidural steroid injection stable fluoroscopic guidance. Risks were discussed including but not limited to: Bleeding, infection, possibility of epidural hematoma and subsequent neurological compromise, dural puncture, headaches, spinal cord and/or nerve damage, side effects of steroid medication, and poor results regarding pain control. Patient understands and wished to proceed. Return to the clinic in approximate 2 weeks for follow-up, was counseled return appointment, Activella, and side effect to be aware of. Medication Injected: Med Injected: Procedure cervical epidural steroid injection at the C6-7 level, using local anesthetic under sterile prep and drape using C-arm fluoroscopic guidance under local anesthesia medications injected ;120 mg Depo-Medrol +5 mL normal saline and 2 mL contrast; condition at discharge is stable patient tolerated procedure well. and had no complications Condition at Discharge: Condition at Discharge: Discharge stable, patient already procedure well had no complications. DORCAS MCRAE MD Jun 21, 2021 09:24
--- NOTE | 2021-06-21 09:25 | PDOC4 ---
Procedure Note: ICD 10 Code: ICD 10 Code: M54.12 M50.30 M 48.02 Procedure Note: Patient was consented for cervical epidural steroid injection fluoroscopic guidance risks were discussed including but not limited to: Bleeding, infection, possibility of epidural hematoma and subsequent neurological compromise, dural puncture, headaches, spinal cord and/or nerve damage, side effects of steroid medication, and poor results regarding pain control. Patient understands and wished to proceed. Procedure cervical epidural steroid injection at the C6-7 level, using local anesthetic under sterile prep and drape using C-arm fluoroscopic guidance under local anesthesia medications injected ;120 mg Depo-Medrol +5 mL normal saline and 2 mL contrast; condition at discharge is stable patient tolerated procedure well. and had no complications DORCAS MCRAE MD Jun 21, 2021 09:25
== END | disposition home or self-care (01) ==
LOC: PNCL 08:34
PROVIDERS: ATTEND Anesthesiology
DX: M50.10 Cervical disc disorder with radiculopathy, unspecified cervical region (principal); M48.02 Spinal stenosis, cervical region; M51.16 Intervertebral disc disorders with radiculopathy, lumbar region; M96.1 Postlaminectomy syndrome, not elsewhere classified; K21.9 Gastro-esophageal reflux disease without esophagitis; M19.90 Unspecified osteoarthritis, unspecified site; F41.9 Anxiety disorder, unspecified; Z79.899 Other long term (current) drug therapy; Z98.890 Other specified postprocedural states; Z72.89 Other problems related to lifestyle
CPT/HCPCS: 62321; J1030; J1040; Q9965

== ENCOUNTER → 2021-07-29 | Outpatient (CLI) | payer MEDICAID ==
[~2021-07-29] MED LIST changes: -IOHEXOL 180 MG/ML 10 ML VIAL. ONE; -methylPREDNISolone ACETATE 40 MG/ML VIAL. ONE; -methylPREDNISolone ACETATE 80 MG/ML VIAL. ONE
--- NOTE | 2021-07-29 15:56 | PDOC ---
Progress Note - Pain Clinic Date of Service: DOS: DATE: 07/29/21 TIME: 15:54 Diagnosis: Dx: Cervical radiculopathy with cervical degenerative disease and cervical spinal stenosis Lumbar to colopathy with lumbar degenerative disease lumbar postlaminectomy syndrome with spinal cord stimulator History or Present Illness: HPI: 45-year-old male via telemedicine visit today with identity verified with full date of as well as full name, total time spent 12 minutes Patient today requesting medication refill of hydromorphone status post spinal cord stimulator revision about 1 week ago. Patient reports stimulator is helping up to 100% better than it was with repositioning and revision now still some significant pain now in the neck and shoulder as well as the mid back and low back but doing much better also some surgical pain which is persistent as well since the recent procedure. Patient reports no side effects with medication has had appropriate K tracks portables urinalysis to date we will refill patient's medication for 1 month. Of hydromorphone 4 mg up to 3 times daily 90 pills dispensed. Patient was given instructions well side effects beware of the medication and will follow up in approximately 4 weeks as scheduled. DORCAS MCRAE MD Jul 29, 2021 15:56
--- NOTE | 2021-07-29 16:04 | NUR ---
Pt. called requesting refill on Hydromorphone 4mg tid for post op procedural pain from SCS battery replacement. Pain states pain level is 9/10. Not experiencing any side effects. Nerve pain is 100% resolved from SCS. Seeing his surgeon the end of July. Dr. Devine spoke with pt prior to E-scribing. K Tracs reviewed. Meredith Brower RN
== END | disposition home or self-care (01) ==
LOC: PNCL 13:01
PROVIDERS: ATTEND Anesthesiology
DX: M50.10 Cervical disc disorder with radiculopathy, unspecified cervical region (principal); M48.02 Spinal stenosis, cervical region; M51.16 Intervertebral disc disorders with radiculopathy, lumbar region; M96.1 Postlaminectomy syndrome, not elsewhere classified; K21.9 Gastro-esophageal reflux disease without esophagitis; M19.90 Unspecified osteoarthritis, unspecified site; F41.9 Anxiety disorder, unspecified; Z79.899 Other long term (current) drug therapy; Z98.890 Other specified postprocedural states; Z72.89 Other problems related to lifestyle
CPT/HCPCS: 99212; G0463

== ENCOUNTER → 2021-11-06 | Outpatient (CLI) | payer MEDICAID ==
[~2021-11-06] MED LIST changes: +DEXAMETHASONE PRES.FREE 10 MG/ML VIAL. ONE; +IOHEXOL 180 MG/ML 10 ML VIAL. ONE; +MAGN500C PO; -MAGN500C10 PO; +MORP15TA PO; -OMEP20TA8 PO; +OMEP20TA91 PO
--- NOTE | 2021-11-06 09:14 | PDOC ---
Progress Note - Pain Clinic Date of Service: DOS: DATE: 11/06/21 TIME: 09:10 Diagnosis: Dx: Lumbar radiculopathy with lumbar degenerative disc disease lumbar postlaminectomy syndrome Cervical radiculopathy cervical degenerative disease and cervical spinal stenosis History or Present Illness: HPI: 45-year-old male returns for follow-up status post cervical epidural steroid injection most recently June 2021. Patient reports he did very well with the cervical epidural steroid injection since then has had a revision of his spinal cord stimulator with a paddle lead placed which she reports is helping but not quite to the level that it was removed from his previous stimulator which became dislodged. Patient reports his main complaint is pain in the low back and bilateral lower extremities rating the posterior gluteus posterior thighs posterior calves bilaterally patient ports tingling stabbing aching sharp in the back tight and shooting in the legs constant severe in the back as well as in the mid back and upper back patient reports a 10 on scale 10 is worse over the past week 6 on average 6 its least is a 6 today. Patient reports no loss of motor function but significant fatigability of both lower extremities bilaterally. 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 Patient reports he is seeing [facility] for counseling on a regular basis which is helpful with dealing with the chronic pain as well. Patient reports no loss of motor function no bowel or bladder incontinence. Patient reports significant debility however of both lower extremities with walking and standing. Patient reports is better with sitting or laying down does awaken from sleep occasionally but not every night. Physical Exam: VS: Blood pressure is 120/85 pulse 81 respirations 18 temperature 98.6 F weight is 221 pounds. PE: PHYSICAL EXAMINATION: GENERAL: The patient is awake, alert, oriented, appropriate, very pleasant in demeanor HEENT: Shows normocephalic, atraumatic. Extraocular movements are intact and symmetrical. Oral cavity: Mucous membranes moist and pink. Dentition is intact. NECK: Shows anterior throat supple without palpable lymphadenopathy noted. Swallow reflex symmetrical. CHEST: Shows normal on inspection. Breath sounds are clear bilaterally, no rales or rhonchi auscultated. HEART: Shows S1, S2 clear. No murmurs auscultated. ABDOMEN: Soft, nontender, nondistended. No palpable organomegaly is noted. BACK: Shows spine grossly in the midline. Normal-appearing cervical lordotic curvature. There is slightly increased thoracic kyphosis, some flattening of the lumbar lordotic curvature with well-healed surgical scar noted and easily palpable medical stimulator generator in the left lumbar paraspinous distribution. Lumbar paraspinous muscles show symmetrical on inspection, on palpation shows some moderate tenderness diffusely throughout the upper, middle and lower distribution of the paraspinous muscles, but without specific trigger points, without radiation of pain. The patient has good rotational motion of the lumbar spine, both laterally as well as extension and flexion without significant difficulty. EXTREMITIES: Lower extremities show deep tendon reflexes 1+ in the patellar and tendo calcaneus tendons. Motor exam is 4 on a scale of 5 with right dorsiflexion, extension, quadriceps and hamstring flexion and 4/5 on the left. Peripheral pulses are 1+ posterior tibial. No peripheral edema is noted bilaterally. Lower extremities are warm and dry to touch, equal in color and appearance. SKIN: Shows warm and dry, good turgor. No edema. No sores, rashes or bruising throughout. Procedure: Procedure: Options were discussed with the patient. Patient's old chart was reviewed his current medications are updated current review of systems updated today as well. We will proceed with a lumbar epidural steroid injection today with fluoroscopic guidance. risks were discussed including but not limited to: Bleeding, infection, possibility of epidural hematoma and subsequent neurological compromise, dural puncture, headaches, spinal cord and/or nerve damage, side effects of steroid medication, and poor results regarding pain control. Patient understands and wished to proceed. Patient return to the clinic in approximately 2 weeks for follow-up, was counseled as to return appointment, activity level, and side effect to be aware of. Medication Injected: Med Injected: Procedure is lumbar epidural steroid injection under local anesthetic using sterile prep and drape at the L5-S1 level using C-arm fluoroscopic guidance in both AP and lateral views medications injected is 20 mg dexamethasone +10mL preservative-free normal saline and 2 mL contrast- condition at discharge is stable patient tolerated procedure well had no complications. Condition at Discharge: Condition at Discharge: Condition at discharge stable, paced tolerated procedure well and had no complications. DORCAS MCRAE MD Nov 06, 2021 09:14
--- NOTE | 2021-11-06 09:15 | PDOC4 ---
Procedure Note: ICD 10 Code: ICD 10 Code: M54.16 M51.36 M 96.1 Procedure Note: Patient is consented for lumbar epidural steroid injection with fluoroscopic guidance. Risks were discussed including but not limited to: Bleeding, infection, possibility of epidural hematoma and subsequent neurological compromise, dural puncture, headaches, spinal cord and/or nerve damage, side effects of steroid medication, and poor results regarding pain control. Patient understands and wished to proceed. Procedure is lumbar epidural steroid injection under local anesthetic using sterile prep and drape at the L5-S1 level using C-arm fluoroscopic guidance in both AP and lateral views medications injected is 20 mg dexamethasone +10mL preservative-free normal saline and 2 mL contrast- condition at discharge is stable patient tolerated procedure well had no complications. DORCAS MCRAE MD Nov 06, 2021 09:15
== END | disposition home or self-care (01) ==
LOC: PNCL 08:20
PROVIDERS: ATTEND Anesthesiology
DX: M51.16 Intervertebral disc disorders with radiculopathy, lumbar region (principal); M50.10 Cervical disc disorder with radiculopathy, unspecified cervical region; M48.02 Spinal stenosis, cervical region; M96.1 Postlaminectomy syndrome, not elsewhere classified; M19.90 Unspecified osteoarthritis, unspecified site; K21.9 Gastro-esophageal reflux disease without esophagitis; F41.9 Anxiety disorder, unspecified; Z79.899 Other long term (current) drug therapy; Z98.890 Other specified postprocedural states; Z72.89 Other problems related to lifestyle
CPT/HCPCS: 62323; J1100; Q9965

== ENCOUNTER → 2021-12-04 | Outpatient (CLI) | payer MEDICAID ==
[~2021-12-04] MED LIST changes: +CLON0.5T PO; +SERT-268 PO
--- NOTE | 2021-12-04 12:04 | PDOC ---
Progress Note - Pain Clinic Date of Service: DOS: DATE: 12/04/21 TIME: 12:01 Diagnosis: Dx: Lumbar radiculopathy with lumbar degenerative disease and lumbar postlaminectomy syndrome with paddle lead spinal cord stimulator Cervical radiculopathy with cervical degenerative disease and cervical spinal stenosis History or Present Illness: HPI: 45-year-old male returns for follow-up status post lumbar epidural steroid injection November 06, 2021. Patient reports that he did very well but only for a few days and feels that the caudal approach she has done better for him in the past. Patient reports pain in the low back bilateral lower extremities essentia lly equal right and left but present bilaterally. Patient reports worse with walking standing changing positions rates his pain a 10 on scale 10 is worse over the past week for an average 3 its least is a 4 today patient scribes aching sharp in the back tight and shooting in the legs tingling burning cramping and stabbing can be constant and severe. Patient has been manipulating his spinal cord stimulator has turned it off currently as he felt that the stimulation was too strong currently. Patient did have that reprogrammed about 3 days ago and is contacting his wireless sales representative to reevaluated later today as well. Patient reports no bowel or bladder incontinence no loss of function, but significant fatigability of both lower extremities. Physical Exam: VS: Blood pressure is 129/88 pulse 78 respirations 16 temperature 98.4 F weight is 219 pounds. PE: PHYSICAL EXAMINATION: GENERAL: The patient is awake, alert, oriented, appropriate, very pleasant in de meanor HEENT: Shows normocephalic, atraumatic. Extraocular movements are intact and symmetrical. Oral cavity: Mucous membranes moist and pink. Dentition is intact. NECK: Shows anterior throat supple without palpable lymphadenopathy noted. Swallow reflex symmetrical. CHEST: Shows normal on inspection. Breath sounds are clear bilaterally. HEART: Shows S1, S2 clear. No murmurs auscultated. ABDOMEN: Soft, nontender, nondistended. No palpable organomegaly is noted. BACK: Shows spine grossly in the midline. Normal-appearing cervical lordotic curvature. There is slightly increased thoracic kyphosis, some moderate flattening of the lumbar lordotic curvature with well-healed surgical scarring noted. Lumbar paraspinous muscles show symmetrical on inspection, on palpation shows some moderate tenderness diffusely throughout the upper, middle and lower distribution of the paraspinous muscles, but without specific trigger points, without radiation of pain. The patient has good rotational motion of the lumbar spine, both laterally as well as extension and flexion without significant difficulty. No tenderness over the spinous processes, sacrum or sacroiliac regions. EXTREMITIES: Lower extremities show deep tendon reflexes 1+ in the patellar and tendo calcaneus tendons. Motor exam is 4 on a scale of 5 with right dorsiflexion, extension, quadriceps and hamstring flexion and 4/5 on the left. Peripheral pulses are 1+ posterior tibial. No peripheral edema is noted bilaterally. Lower extremities are warm and dry to touch, equal in color and appearance. SKIN: Shows warm and dry, good turgor. No edema. No sores, rashes or bruising throughout. Procedure: Procedure: Options discussed with patient. Patient's chart was reviewed his current medication regimen updated current review of systems updated today as well. We will proceed with a caudal approach epidural steroid injection today with fluoroscopic guidance. Risks were discussed including but not limited to: Bleeding, infection, possibility of epidural hematoma and subsequent neurological compromise, dural puncture, headaches, spinal cord and/or nerve damage, side effects of steroid medication, and poor results regarding pain control. Patient understands and wished to proceed. Patient return to clinic in approximately 2 weeks for follow-up, was counseled as to return appointment, activity level, and side effects to be aware of. Medication Injected: Med Injected: Procedure is lumbar epidural steroid injection under local anesthetic using sterile prep and drape at the caudal level using C-arm fluoroscopic guidance in both AP and lateral views medications injected is 20 mg dexamethasone +10mL preservative-free normal saline and 2 mL contrast- condition at discharge is stable patient tolerated procedure well had no complications. Condition at Discharge: Condition at Discharge: Condition at discharge is stable, paced tolerated procedure well and had no complications. DORCAS MCRAE MD Dec 04, 2021 12:04
--- NOTE | 2021-12-04 12:04 | PDOC4 ---
Procedure Note: ICD 10 Code: ICD 10 Code: M54.16 M51.36 M96.1 Procedure Note: Patient was consented for lumbar epidural steroid injection with fluoroscopic guidance. Risks were discussed including but not limited to: Bleeding, infection, possibility of epidural hematoma and subsequent neurological compromise, dural puncture, headaches, spinal cord and/or nerve damage, side effects of steroid medication, and poor results regarding pain control. Patient understands and wished to proceed. Procedure is lumbar epidural steroid injection under local anesthetic using sterile prep and drape at the caudal level using C-arm fluoroscopic guidance in both AP and lateral views medications injected is 20 mg dexamethasone +10mL preservative-free normal saline and 2 mL contrast- condition at discharge is stable patient tolerated procedure well had no complications. DORCAS MCRAE MD Dec 04, 2021 12:04
== END | disposition home or self-care (01) ==
LOC: PNCL 10:43
PROVIDERS: ATTEND Anesthesiology
DX: M51.16 Intervertebral disc disorders with radiculopathy, lumbar region (principal); M96.1 Postlaminectomy syndrome, not elsewhere classified; M50.10 Cervical disc disorder with radiculopathy, unspecified cervical region; M48.02 Spinal stenosis, cervical region
CPT/HCPCS: 62323; J1100; Q9965